=== PATIENT | male | born 1950 | race Caucasian/White ===

== ENCOUNTER 2016-03-16 15:04 | Emergency (ER) | payer MEDICARE, OTHER ==
[2016-03-16] MEDS ORDERED: KETOROLAC TROMETHAMINE 60 MG/2 ML VIAL IM ONE ×2 (15:28→15:31)
--- NOTE | 2016-03-16 15:31 | ERNOTE ---
Back Pain ER HPI Date of Service: 03/16/16 Presenting Symptoms: injury/pain to back Time Seen by Provider: 03/16/16 15:22 Source: patient, RN notes reviewed Exam Limitations: no limitations Immunizations: IMMUNIZATION HX Immunizations Up to Date Yes History of Influenza Vaccine No Allergies/Adverse Reactions: Allergies No Known Drug Allergies Allergy (Unknown, Verified 03/16/16 15:13) Home Medications: HOME MEDICATIONS Atorvastatin Calcium [Lipitor] 40 mg PO DAILY 10/29/13 [Last Taken 11/26/15 09: 00] amLODIPine BESYLATE [Norvasc] 10 mg PO DAILY 11/26/15 [Last Taken 11/26/15 09:00 ] Acetaminophen [Tylenol] 650 mg PO QID PRN #0 tablet 11/27/15 [Last Taken Unknown ] Cyclobenzaprine HCl [Flexeril] 10 mg PO TID PRN #30 tab 03/16/16 [Last Taken Unknown] Narrative: Geovanny is a 65 year old male who presents to the ED for bilateral flank pain that began a few days ago. He is concerned that he may have kidney stones. He reports that he had been moving furniture. He was also recently diagnosed with diabetes. He would like a second opinion about this. He has a lab report with him from Feb.08 that was done elsewhere. His glucose was 135. He reports that he was not fasting at that time. He has not follow up with his PCP regarding this. Quality/Severity: Reports: moderate Location of pain: Reports: mid back, no radiation Recent Injury?: Reports: possibly Possible Precipitating Factor: Reports: lifting Modifying Factors - (Worsens): Reports: cough/deep breaths Associated Symptoms: Denies: fever/chills, nausea/vomiting, problems urinating Prior Treament: Denies: similar symptoms before Review of Systems - Review of Systems Constitutional: Absent: fever, chills, malaise EYE: Present: no symptoms reported ENT: Present: no symptoms reported Respiratory: Absent: shortness of breath, cough Cardiology: Absent: chest pain, edema Gastrointestinal/Abdominal: Absent: nausea, vomiting, diarrhea, abdominal pain Genitourinary: Absent: frequency, dysuria, hematuria Musculoskeletal: Present: back pain, muscle pain. Absent: neck pain Skin: Absent: rash, lesions Endocrine: Present: no symptoms reported Hematologic/Lymphatic: Present: no symptoms reported Psych: Present: no symptoms reported - Patient's Past Medical History Patient History - Medical: Arthritis Patient History - Cardiac/Respiratory: Hypertension, Hyperlipidemia Patient History - Cancer: No Hx of Cancer Patient History - Surgical Procedures: Appendectomy, Colonoscopy, Other - Family History Mother Family History - Medical: Family History - Cardiac/Respiratory: No pertinent hx Father Family History - Medical: History Unknown Brother Family History - Cardiac/Respiratory: Cardiac Arrest, Myocardial Infarction - Social History Living Situations: home Smoking Status: Former smoker Have you smoked in the past 12 months: No Do you dip or chew tobacco: No Alcohol Use: rarely Drug Use: none Physical Exam - Physical Exam General Appearance: Present: wd/wn, alert, no apparent distress Neck: Present: normal inspection, nontender, supple Respiratory: Present: no respiratory distress, normal breath sounds, no accessory muscle use, lungs clear Cardiovascular/Chest: Present: regular rate, rhythm, no murmur Back Exam: Present: normal range of motion, no vertebral tenderness, CVA tenderness (R), CVA tenderness (L) Extremity Exam: Present: normal inspection, normal range of motion Neurological Exam: Present: alert, oriented, normal mood/affect, no motor/ sensory deficits Skin Exam: Present: normal color, warm/dry ED Progress - Results and Orders Patient's Lab Results:: I have reviewed the patient's lab results. - Vital Signs Patient's Vital Signs:: I have reviewed the patient's vital signs. Vital Signs: Vital Signs 03/16/16 15:09 Temperature 36 C L Pulse Rate 67 Respiratory 14 Rate Blood Pressure 159/83 O2 Sat by Pulse 95 Oximetry - CT/Ultrasound CT/Ultrasound Narrative: Stone protocol CT: IMPRESSION: 1. No evidence of renal stones or obstructive uropathy. 2. CT findings suggestive of acute diverticulitis of the junction of the descending and sigmoid colon as above. Bowel wall thickening could also be due to potential neoplasm. Consider follow-up colonoscopy or contrast enema after resolution of the patient's acute symptoms. 3. Small exophytic lesion of the inferior right kidney. Consider follow-up renal ultrasound on a routine basis. Additional comments and limitations are as above. Electronically signed by Gilmar Vences M.D.. - Progress/Reassessment Chief Complaint: Back Pain Progress:: Improved Plan - Plan Plan: Discussed UA and CT results with patient. Back pain likely d/t muscle strain as he recently relocated and has been moving furniture. CT did show possible diverticulitis but patient denies any GI symptoms. Discussed need for f/u of right renal lesion and his questionable diagnosis of diabetes with his PCP. Departure Clinical Impression: Bilateral thoracic back pain Qualifiers: Chronicity: acute Qualified Code(s): M54.6 - Pain in thoracic spine - Departure Disposition: Home Follow Up Needed Condition: Good Instructions: Back Pain, Adult, [id number] Additional Instructions: Can take Aleve twice a day - take with food Can also take Tylenol Flexeril can cause drowsiness - might just want to take at bedtime Follow up with Dr. Grande about your blood sugar and for an ultrasound of the lesion seen on the right kidney Referrals: Rajinder Grande, [Primary Care Provider] - Prescriptions: Cyclobenzaprine HCl [Flexeril] 10 mg PO TID PRN #30 tab PRN Reason: MUSCLE SPASMS
[2016-03-16 15:32] LABS: Urine Bilirubin Negative (NEGATIVE); Urine Ketone Negative (NEGATIVE); Urine Nitrite Negative (NEGATIVE); Urine Protein Negative (NEGATIVE); Urine Urobilinogen Normal (NORMAL)
[2016-03-16 15:38] LABS: Urine Blood 10 /ul (NEGATIVE); Urine Color Yellow
[2016-03-16 15:39] LABS: Urine Appearance Clear; Urine Bacteria None Seen; Urine RBC None Seen /hpf (0-5); Urine WBC None Seen /hpf (0-5)
[2016-03-16 16:18] VITALS: BP 151/92
== END 2016-03-16 16:55 | disposition home or self-care (01) ==
LOC: ER 15:04
DX: M54.6 Pain in thoracic spine (principal); Z87.891 Personal history of nicotine dependence; I10 Essential (primary) hypertension

== ENCOUNTER 2016-05-20 16:48 | Emergency (ER) | payer MEDICARE, OTHER ==
--- OUTSIDE RECORDS SUMMARY | 2016-05-20 17:15 | XMS REPORT | Continuity of Care Document ---
:[address] [place] [address] Care Team Providers Name Role Phone Ivet Landeros Primary Care Provider [phone] Source Comments This disclosure is being made pursuant to the [employer] program and maynot contain all information available regarding this patient.[address] Active Allergies and Adverse Reactions No Known Allergies Current Medications Be aware that medications may not be up to date as of this document. Alwaysverify current medications with the patient. Prescription Sig. Disp. Refills Start Date End Date Status atorvastatin (LIPITOR) Take 40 mg by Active 40 MG tablet mouth daily. amLODIPine (NORVASC) 10 Take 1 tablet by 90 tablet 0 02/09/2016 Active MG tablet mouth daily. metFORMIN (GLUCOPHAGE) Take 1 tablet by 120 tablet 0 03/07/2016 Active 500 MG tablet mouth 2 (two) times daily with meals. Blood Glucose Test once daily 1 each 0 03/07/2016 Active Monitoring Suppl FREDRICK glucose blood test Test once daily 100 each 5 03/07/2016 Active strip Lancets MISC Test once daily 100 each 5 03/07/2016 Active Active Problems Patient Care Coordination Note Due for diabetic eye exam Has current referral to [facility] - has 03/20 appointment No known active problems Most Recent Encounters Date Type Specialty Providers Description 05/19/2016 Telephone Family Medicine Magdalena Foster Appointment; CHAUNCEY Mayer Medication Review 05/19/2016 Scanned Document Ivet Antunez MD 03/14/2016 Scanned Document Ivet Antunez MD 03/07/2016 Office Visit Family Ivet Cornejo Newly diagnosed diabetes (HCC) (Primary Dx) 03/03/2016 Telephone Family Lis Kapadia, Appointment CHAUNCEY Immunizations Name Dates Previously Given Next Due Tdap 09/16/2013 Social History Tobacco Use Types Packs/Day Years Used Date Former Smoker Smokeless Tobacco: Current User Comments:ciggars Alcohol Use Drinks/Week oz/Week Comments Yes Last Filed Vital Signs Vital Sign Reading Time Taken Blood Pressure 136/72 03/07/2016 1:05 PM MORTGAGE PROFESSIONAL Pulse 68 03/07/2016 1:05 PM MORTGAGE PROFESSIONAL Temperature 36.4 C (97.6 F) 03/07/2016 1:05 PM MORTGAGE PROFESSIONAL Respiratory Rate 16 03/07/2016 1:05 PM MORTGAGE PROFESSIONAL Height 1.753 m (5' 9") 03/07/2016 1:05 PM MORTGAGE PROFESSIONAL Weight 116.03 kg (255 lb 12.8 oz) 03/07/2016 1:05 PM MORTGAGE PROFESSIONAL Body Mass Index 37.76 03/07/2016 1:05 PM MORTGAGE PROFESSIONAL Oxygen Saturation 98% 12/23/2015 9:15 AM CDT Plan of Care Patient Goal Type Goal Blood Pressure Blood Pressure below 140/90 Result Component HEMOGLOBIN A1C below 7.0 Health Maintenance Due Date Last Done Comments Eye (Ophthalmology) Exam 06/15/1961 Lab-Urine Microalbumin 06/15/1961 Hepatitis C Screening 06/15/1969 Well Adult Visit 06/15/2001 LAB-HgA1C 08/09/2016 02/09/2016 Lab-Lipids 02/08/2017 02/09/2016 Zoster Vaccine 60+ 02/08/2017 Postponed from 2011 (Patient Declined) Influenza Immunization (#1) 2017 Postponed from 11/04/2015 (Patient Declined) Foot Exam 03/07/2017 03/07/2016 Tetanus/Pertussis (2 - Td) 09/17/2023 09/16/2013 Colonoscopy 03/17/2025 03/17/2015, 03/17/2015 Results from Last 3 Months Referral to Orthopedic Surgery (04/10/2016)
--- OUTSIDE RECORDS SUMMARY | 2016-05-20 17:16 | XMS REPORT | Continuity of Care Document ---
:1950 Author Organization [facility] ([facility]) Address [address] [place] [address] Phone [phone] Care Team Providers Name Role Phone Javid Gonsalves Primary Care Provider [phone] Source Comments This disclosure is being made pursuant to the Care Everywhere program, applicable federal and state laws, and may not contain all informaitonavailable regarding this patient.[facility] ([facility]) Active Allergies and Adverse Reactions No Known Allergies Current Medications Prescription Sig. Disp. Refills Start Date End Date Status cyclobenzaprine 10 mg Take 10 mg by Active tablet mouth 3 times daily as needed. sildenafil (VIAGRA) 100 Take 1 tablet 6 tablet 11 06/18/2015 Active mg tablet (100 mg total) by mouth as needed. Take 1 hour prior to sexual activity. naproxen 500 mg tablet Take 500 mg by Active mouth 2 times daily with meals. amLODIPine 5 mg tablet Take 10 mg by Active mouth daily. atorvastatin 40 mg Take 1 tablet 90 tablet 3 03/22/2016 Active tablet (40 mg total) by mouth every evening. amoxicillin 500 mg Take 1 capsule 30 capsule 1 03/30/2016 Active capsule (500 mg total) by mouth 2 times daily. 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) Social History Tobacco Use Types Packs/Day Years Used Date Former Smoker Cigars Quit: 10/03/2012 Smokeless Tobacco: Never Used Alcohol Use Drinks/Week oz/Week Comments Yes very little Last Filed Vital Signs Vital Sign Reading Time Taken Blood Pressure 156/82 03/30/2016 1:15 PM CAR CHANGER Pulse 76 03/30/2016 1:15 PM CAR CHANGER Temperature 35.9 C (96.7 F) 03/30/2016 1:15 PM CAR CHANGER Respiratory Rate 18 03/30/2016 1:15 PM CAR CHANGER Height 1.78 m (5' 10.07") 03/20/2006 8:22 AM CAR CHANGER Weight 114.125 kg (251 lb 9.6 oz) 03/30/2016 1:15 PM CAR CHANGER Body Mass Index 36.02 03/30/2016 1:15 PM CAR CHANGER Oxygen Saturation - - Plan of Care Date Type Specialty Providers Description 05/30/2016 Appointment [facility] Rajinder Grande, Chief Comp: Patient DO Reported Reason For [address] [place] [address] [phone] 07/28/2016 Appointment [facility] Rajinder Grande, Chief Comp: Patient DO Reported Reason For [address] [place] [address] [phone] Health Maintenance Due Date Last Done Comments HCV Screening 1950 Hepatitis B Vaccine (1 of 3 - Primary Series) 1950 Tdap Vaccine 06/15/1962 Td Vaccine 06/15/1969 Colonoscopy 06/15/2001 Prostate Cancer Screening 06/15/2001 Zoster Vaccine 2011 Influenza Vaccine: Seasonal (#1) 10/04/2015 Lipid Disorder Screening 01/03/2018 01/03/2013 Results from Last 3 Months Not on file
[2016-05-20] MEDS ORDERED: ACETAMINOPHEN 500 MG TABLET PO ONE (17:26)
[2016-05-20 17:37] LABS: Hematocrit 43.6 % (42.0-52.0); Hemoglobin 14.3 gm/dL (13.5-18.0); Mean Cell Volume 81.5 fl (78-100); Mean Corpuscular Hemoglobin 26.7 pg (27-31); Mean Corpuscular Hgb Conc 32.8 g/dl (32-36); Mean Platelet Volume 8.9 fl (6.0-9.5); Neutrophil # 11.4 K/mm3 (1.3-6.0); Neutrophil % 74.1 % (42-75.0); Platelet Count 344 K/mm3 (150-450); Red Blood Count 5.35 M/mm3 (4.7-6.0); Red Cell Distribution Width 14.4 % (11.5-14.0); White Blood Count 15.3 K/mm3 (4.0-10.5)
--- NOTE | 2016-05-20 17:39 | ERNOTE ---
Abdominal HPI - Narrative Date of Service: 05/20/16 - General Chief Complaint: Abdominal Pain Time Seen by Provider: 05/20/16 17:04 Source: patient Exam Limitations: no limitations - Immun/Allergies/Home Medications Immunizatons: IMMUNIZATION HX Immunizations Up to Date Yes History of Influenza Vaccine No Hx Pneumococcal Vaccination No Allergies/Adverse Reactions: Allergies No Known Drug Allergies Allergy (Unknown, Verified 05/20/16 16:58) Home Medications: HOME MEDICATIONS Atorvastatin Calcium [Lipitor] 40 mg PO DAILY 10/29/13 [Last Taken 11/26/15 09: 00] amLODIPine BESYLATE [Norvasc] 10 mg PO DAILY 11/26/15 [Last Taken 11/26/15 09:00 ] Acetaminophen [Tylenol] 650 mg PO QID PRN #0 tablet 11/27/15 [Last Taken Unknown ] Cyclobenzaprine HCl [Flexeril] 10 mg PO TID PRN #30 tab 03/16/16 [Last Taken Unknown] Ciprofloxacin HCl [Cipro] 500 mg PO BID #20 tab 05/20/16 [Last Taken Unknown] metroNIDAZOLE [Flagyl] 500 mg PO QID #40 tab 05/20/16 [Last Taken Unknown] - Pain Score Pain Score #1 Pain Score: 5 Abdominal Pain Onset Location: suprapubic Pain Radiation: no radiation - History of Present Illness Narrative: Patient is a 65 year old male patient who presents to the ED with complaints of suprapubic pain since 0300 this am. Patient states he awoke 0300 with sudden onset of constant, sharp/throbbing pain that has been progressively worsening. States he has history of diverticulitis and states this is where the pain originally begins. States he ate a sandwich 2 days ago with seeds in it. States yesterday had some nausea and chills which resolved after a few hours. Denies vomiting, fever or diarrhea. Pain does not radiate. Last BM this morning and states that the pain lessened slightly after the BM. Does have prostate issues and was told he has enlarged prostate. Denies urgency, hematuria or frequency yet noticed dysuria this morning. Admits to being sexually active, states that he has had same partner for years. Denies penile discharge Date (Duration): 05/20/16 Time (Timing): 03:00 Timing: constant, getting worse Quality: moderate, stabbing, throbbing Activities at Onset: sleep Modifying Factors - (Improves): Present: defecating Modifying Factors - (Worsens): Present: movement Associated Symptoms: Present: fever/chills, nausea. Absent: headache, back pain , chest pain, neck pain, diaphoresis, diarrhea-gross blood, diarrhea-mucous, fatigue, heartburn, vomiting, loss of appetite, shortness of breath, swelling/ mass in abdomen Prior Abdominal Problems: Present: similar symptoms Review of Systems - Review of Systems Constitutional: Present: no symptoms reported, chills. Absent: recent illness, fever, diaphoresis, weakness, fatigue, malaise EYE: Present: no symptoms reported ENT: Present: no symptoms reported Respiratory: Absent: shortness of breath, cough, orthopnea, wheezing, stridor Cardiology: Absent: chest pain, palpitations, syncope Gastrointestinal/Abdominal: Present: nausea, abdominal pain. Absent: vomiting, diarrhea, constipation Genitourinary: Present: dysuria. Absent: frequency, hematuria, decreased urinary output, discharge Musculoskeletal: Absent: back pain, muscle pain, joint pain, joint swelling Skin: Absent: rash, dryness Neurological: Present: no symptoms reported Endocrine: Present: no symptoms reported Hematologic/Lymphatic: Present: no symptoms reported. Absent: swollen glands Psych: Present: no symptoms reported - Patient's Past Medical History Patient History - Medical: Arthritis, Other Patient History - Cardiac/Respiratory: No pertinent hx Patient History - Cancer: No Hx of Cancer Patient History - Surgical Procedures: Appendectomy, Colonoscopy, Other Patient History - Other: None - Family History Mother Family History - Medical: Family History - Cardiac/Respiratory: No pertinent hx Father Family History - Medical: History Unknown Brother Family History - Cardiac/Respiratory: Cardiac Arrest, Myocardial Infarction - Social History Living Situations: home Abuse History: No History of abuse Psych History: No pertinent hx Smoking Status: Former smoker Alcohol Use: rarely Drug Use: none - Immunizations Immunizations Up to Date: Yes Hx Pneumococcal Vaccination: No History of Influenza Vaccine: No Physical Exam - Physical Exam General Appearance: Present: wd/wn, alert, no apparent distress Eye Exam: Normal inspection: bilateral, PERRL: bilateral Ears, Nose, Throat: Present: normal pharynx. Absent: pharyngeal erythema, pharyngeal swelling, tonsillar exudate, dry mucous membranes Neck: Present: normal inspection, nontender. Absent: lymphadenopathy (R), lymphadenopathy (L) Respiratory: Present: no respiratory distress, normal breath sounds, no accessory muscle use, chest nontender, lungs clear. Absent: respiratory distress, accessory muscle use, decreased breath sounds, crackles, rales, rhonchi, wheezing Cardiovascular/Chest: Present: regular rate, rhythm, no murmur, normal peripheral pulses. Absent: gallop/S3, gallop/S4 Peripheral Pulses: N=norm/S=strong/W=weak/B=bound/A=absent: Radial (R): Normal, Radial (L): Normal Gastrointestinal/Abdominal: Present: normal bowel sounds, nondistended, soft, no organomegaly, tenderness - suprapubic pain Rectal Exam: Absent: normal prostate, black stool, blood-streaked stool Male Genitals Exam: Present: normal genitalia. Absent: normal prostate, scrotum tenderness (R), scrotum tenderness (L), testicular tenderness (R), testicular tenderness (L), urethral discharge Back Exam: Present: normal inspection, normal range of motion, no CVA tenderness , no vertebral tenderness Extremity Exam: Present: normal inspection, non-tender, normal range of motion, no edema Neurological Exam: Present: alert, oriented, normal mood/affect, no motor/ sensory deficits Skin Exam: Present: normal color, warm/dry Lymphatic Exam: Present: no adenopathy ED Progress - Results and Orders Patient's Lab Results:: I have reviewed the patient's lab results. - Vital Signs Patient's Vital Signs:: I have reviewed the patient's vital signs. Vital Signs: Vital Signs 05/20/16 16:53 Temperature 37.3 C Pulse Rate 75 Respiratory 16 Rate Blood Pressure 154/83 O2 Sat by Pulse 96 Oximetry - CT/Ultrasound CT/Ultrasound Narrative: CT of abdomen and pelvis with and without contrast: diverticulosis involving the descending colon and sigmoid colon. Mild diverticulitis involving the proximal sigmoid colon without definable fluid collection/abscess. - Progress/Reassessment Chief Complaint: Abdominal Pain Progress:: Re-examined Progress Note-Subjective: 05/20/16 18:08 Reviewed labs with patient and discussed desire to obtain CT scan of abdomen. Patient understood and agrees with decision 05/20/16 19:54 Continues to sit in chair watching television. Awaiting CT scan. Denies worsening pain, NVD. 05/20/16 21:[address] findings with patient. Expressed concern in wanting to admit patient yet he declined admission. Agreed to IV antibiotics, IVF and pain control in ED and discharged to home on oral antibiotics. Patient verbalized understanding in returning to ED in next 12-48 hours if condition worsens at home and patient experiences worsening pain, fever, chills, SOB or pain. Departure - Departure Clinical Impression: Diverticul disease small and large intestine, no perforati or abscess Disposition: Home Follow Up Needed Condition: Good Instructions: Diverticulosis, Diverticulitis, [id number] Additional Instructions: Begin Cipro and Flagyl antibiotics Sunday. Take as directed until finished. Follow up with Dr Grande this upcoming week. Return to ED if pain worsens or begin to have fever, chills, malaise, or difficulty breathing Referrals: Rajinder Grande, [Primary Care Provider] - Prescriptions: Ciprofloxacin HCl [Cipro] 500 mg PO BID #20 tab metroNIDAZOLE [Flagyl] 500 mg PO QID #40 tab
[2016-05-20 17:51] LABS: Albumin * 4.2 gm/dl (3.4-5.0); Anion Gap 13.8 mmol/L (6.8-13.8); BUN/Creatinine Ratio 17.2 (9.0-21.6); Bilirubin, Total 0.3 mg/dL (0.0-1.1); Ca. Corrected For Albumin 8.4 mg/dL (8.4-10.2); Calcium * 8.9 mg/dL (7.9-10.9); Carbon Dioxide 28.3 mmol/L (24-32.6); Potassium 4.1 mmol/L (3.4-4.6); Total Protein 8.1 gm/dL (6.2-8.2)
[2016-05-20 17:56] LABS: Urine Appearance Clear; Urine Bilirubin Negative (NEGATIVE); Urine Blood 25 /ul (NEGATIVE); Urine Color Yellow; Urine Ketone Negative (NEGATIVE); Urine Nitrite Negative (NEGATIVE); Urine Protein Negative (NEGATIVE); Urine Urobilinogen Normal (NORMAL); Urine pH 5.5 pH (5.0-7.0)
[2016-05-20 17:57] LABS: Urine Bacteria None Seen; Urine RBC 0-5 /hpf (0-5); Urine WBC 0-5 /hpf (0-5)
[2016-05-20] MEDS ORDERED: DIATRIZOATE MEGLU/DIATRIZO SOD 30 ML BTL PO ONE (18:15)
[2016-05-20] MEDS ORDERED: NORMAL SALINE 1,000 ML IV PRN (21:24)
[2016-05-20] MEDS ORDERED: KETOROLAC TROMETHAMINE 30 MG/ML VIAL IV ONE (21:24)
[2016-05-20] MEDS ORDERED: CIPROFLOXACIN LACTATE/D5W 400 MG/200 ML BAG IV SCH (21:30)
[2016-05-20] MEDS ORDERED: metroNIDAZOLE/SODIUM CHLORIDE 500 MG/100 ML BAG IV SCH (21:30)
[2016-05-20] MEDS ORDERED: KETOROLAC TROMETHAMINE 30 MG/ML VIAL ONE (21:45)
[2016-05-20 23:14] VITALS: BP 131/83
== END 2016-05-21 00:30 | disposition home or self-care (01) ==
LOC: ER 16:48
DX: K57.50 Diverticulosis of both small and large intestine without perforation or abscess without bleeding (principal)

== ENCOUNTER 2016-08-28 18:08 | Emergency (ER) | payer MEDICARE, OTHER ==
--- OUTSIDE RECORDS SUMMARY | 2016-08-28 18:25 | XMS REPORT | Continuity of Care Document ---
:1950 Author Organization [employer] [place] [address] Care Team Providers Name Role Phone Unavailable Primary Care Provider Unavailable Source Comments This disclosure is being made pursuant to the [employer] program and maynot contain all information available regarding this patient.[employer] Active Allergies and Adverse Reactions No Known [...] diabetic eye exam Has current referral to [facility] - has 03/20 appointment No known active problems Immunizations Name Dates Previously Given Next Due Tdap 09/16/2013 Social History Tobacco Use Types Packs/Day Years Used Date Former Smoker Smokeless Tobacco: Current User Comments:ciggars Alcohol Use Drinks/Week oz/Week Comments Yes Last Filed Vital Signs Vital Sign Reading Time Taken Blood Pressure 136/72 03/07/2016 1:05 PM HOSPITAL SECRETARY Pulse 68 03/07/2016 1:05 PM HOSPITAL SECRETARY Temperature 36.4 C (97.6 F) 03/07/2016 1:05 PM HOSPITAL SECRETARY Respiratory Rate 16 03/07/2016 1:05 PM HOSPITAL SECRETARY Height 1.753 m (5' 9") 03/07/2016 1:05 PM HOSPITAL SECRETARY Weight 116.03 kg (255 lb 12.8 oz) 03/07/2016 1:05 PM HOSPITAL SECRETARY Body Mass Index 37.76 03/07/2016 1:05 PM HOSPITAL SECRETARY Oxygen Saturation 98% 12/23/2015 9:15 AM CDT Plan of Care Patient Goal Type Goal Blood Pressure Blood Pressure below 140/90 Result Component HEMOGLOBIN A1C below 7.0 Health Maintenance Due Date Last Done Comments Eye (Ophthalmology) Exam 06/15/1961 Lab-Urine Microalbumin 06/15/1961 Hepatitis C Screening 06/15/1969 Well Adult Visit 06/15/2001 Pneumococcal Low/Medium Risk 06/15/2016 65+ (1 of 2 - PCV13) LAB-HgA1C 08/09/2016 02/09/2016 Lab-Lipids 02/08/2017 02/09/2016 Zoster Vaccine 60+ 02/08/2017 Postponed from 2011 (Patient Declined) Influenza Immunization (#1) 2017 Postponed from 11/04/2015 (Patient Declined) Foot Exam 03/07/2017 03/07/2016 Tetanus/Pertussis (2 - Td) 09/17/2023 09/16/2013 Colonoscopy 03/17/2025 03/17/2015, 03/17/2015 Results from Last 3 Months Not on file
--- NOTE | 2016-08-28 18:33 | ERNOTE ---
ENT HPI Date of Service: 08/28/16 Presenting Symptoms: other - ear pain Time Seen by Provider: 08/28/16 18:18 Source: patient Exam Limitations: no limitations - Immun/Allergies/Home Medications Immunizations: IMMUNIZATION HX Immunizations Up to Date Yes History of Influenza Vaccine No Hx Pneumococcal Vaccination No Allergies/Adverse Reactions: Allergies Allergy/AdvReac Type Severity Reaction Status Date / Time No Known Drug Allergies Allergy Unknown Verified 08/28/16 18:23 Home Medications: HOME MEDICATIONS Atorvastatin Calcium [Lipitor] 40 mg PO DAILY 10/29/13 [Last Taken 11/26/15 09: 00] amLODIPine BESYLATE [Norvasc] 5 mg PO DAILY 11/26/15 [Last Taken 11/26/15 09:00] Neomy Sulf/Polymyx B Sulf/Hc [Cortisporin Otic] 5 drop RIGHT EAR QID #10 ml [Last Taken Unknown] Tamsulosin HCl 0.4 mg PO DAILY 08/28/16 [Last Taken Unknown] - History of Present Illness Narrative: Pt. comes in with c/o R ear pain for 12 days. Pt. has been on abx for 9 days and it is not improving but is worsening and his hearing is decreased at this time. Pt. denies any SOB, CP, NVD, fever, recent illness, or injury. Pt. denies any pain control prior to arrival. Review of Systems - Review of Systems Constitutional: Present: no symptoms reported. Absent: recent illness, fever, chills, weakness, fatigue, malaise EYE: Present: no symptoms reported ENT: Present: ear pain - R Respiratory: Present: no symptoms reported. Absent: shortness of breath, cough , wheezing Cardiology: Present: no symptoms reported. Absent: chest pain, palpitations, edema Gastrointestinal/Abdominal: Present: no symptoms reported. Absent: nausea, vomiting, diarrhea Musculoskeletal: Present: no symptoms reported. Absent: back pain, joint pain Skin: Present: no symptoms reported Neurological: Present: no symptoms reported. Absent: headache, dizziness/light- headedness, numbness, tingling All Other Systems: All systems neg except as marked - Patient's Past Medical History Patient History - Medical: Arthritis Patient History - Cardiac/Respiratory: No pertinent hx Patient History - Cancer: No Hx of Cancer Patient History - Surgical Procedures: Appendectomy, Colonoscopy, Other Patient History - Other: None - Family History Mother Family History - Medical: Family History - Cardiac/Respiratory: No pertinent hx Father Family History - Medical: History Unknown Brother Family History - Cardiac/Respiratory: Cardiac Arrest, Myocardial Infarction - Social History Living Situations: home Abuse History: No History of abuse Psych History: No pertinent hx Alcohol Use: rarely Drug Use: none - Immunizations Immunizations Up to Date: Yes Hx Pneumococcal Vaccination: No History of Influenza Vaccine: No Physical Exam - Physical Exam General Appearance: Present: wd/wn, alert, no apparent distress Eye Exam: Normal inspection: bilateral, PERRL: bilateral, EOMI: bilateral Ears, Nose, Throat: Present: abnormal TM (R) - Obscured by purulent cerumen, cerumen impaction - R, normal pharynx, other - eustacian tube erythema Neck: Present: normal inspection, nontender. Absent: lymphadenopathy (R), lymphadenopathy (L) Respiratory: Present: no respiratory distress, normal breath sounds, no accessory muscle use, chest nontender, lungs clear Cardiovascular/Chest: Present: regular rate, rhythm, no murmur, normal peripheral pulses Back Exam: Present: normal inspection Extremity Exam: Present: normal inspection Neurological Exam: Present: alert, oriented, normal mood/affect, no motor/ sensory deficits Skin Exam: Present: normal color, warm/dry. Absent: pallor, skin rash ED Progress - Vital Signs Patient's Vital Signs:: I have reviewed the patient's vital signs. Departure Clinical Impression: Otitis externa Qualifiers: Otitis externa type: diffuse Chronicity: acute Laterality: right Qualified Code (s): H60.311 - Diffuse otitis externa, right ear Otitis media Qualifiers: Otitis media type: suppurative Chronicity: acute Laterality: right Recurrence: recurrent Spontaneous tympanic membrane rupture: with spontaneous rupture Qualified Code(s): H66.014 - Acute suppurative otitis media with spontaneous rupture of ear drum, recurrent, right ear - Departure Disposition: Home self-care Condition: Good Instructions: Otitis Externa, [id number], Otitis Media, Adult, [id number] Additional Instructions: Please follow up with ear nose and throat doctor in 2-3 days if not improved. Referrals: Gilbert Tolbert MD [Courtesy Staff] - Prescriptions: Neomy Sulf/Polymyx B Sulf/Hc [Cortisporin Otic] 5 drop RIGHT EAR QID #10 ml
[2016-08-28 19:05] VITALS: BP 145/82
== END 2016-08-28 19:07 | disposition home or self-care (01) ==
LOC: ER 18:08
DX: H60.311 Diffuse otitis externa, right ear (principal); H66.014 Acute suppurative otitis media with spontaneous rupture of ear drum, recurrent, right ear

== ENCOUNTER 2016-11-09 20:36 | Emergency (ER) | payer MEDICARE, OTHER ==
[2016-11-09] MEDS ORDERED: KETOROLAC TROMETHAMINE 60 MG/2 ML VIAL IM ONE ×2 (22:25)
--- NOTE | 2016-11-09 22:27 | ERNOTE ---
Medical Problem HPI - General Chief Complaint: General Assessment Time Seen by Provider: 11/09/16 22:17 Source: patient Exam Limitations: no limitations - Immun/Allergies/Home Medications Immunizations: IMMUNIZATION HX Immunizations Up to Date Yes History of Influenza Vaccine No Hx Pneumococcal Vaccination No Allergies/Adverse Reactions: Allergies No Known Drug Allergies Allergy (Unknown, Verified 11/09/16 21:04) Home Medications: HOME MEDICATIONS Atorvastatin Calcium [Lipitor] 40 mg PO DAILY 10/29/13 [Last Taken 11/26/15 09: 00] amLODIPine BESYLATE [Norvasc] 5 mg PO DAILY 11/26/15 [Last Taken 11/26/15 09:00] Tamsulosin HCl 0.4 mg PO DAILY 08/28/16 [Last Taken Unknown] Nabumetone 750 mg PO BID #20 tablet 11/09/16 [Last Taken Unknown] - History of Present History Narrative: left groin pain after lifting a kayak onto a car 3 days ago. Timing: getting worse Severity: moderate Modifying Factors - (Worsens): Present: movement Review of Systems - Review of Systems Constitutional: Absent: recent illness, fever, chills Respiratory: Absent: shortness of breath Cardiology: Absent: chest pain Gastrointestinal/Abdominal: Absent: nausea, vomiting, constipation Genitourinary: Absent: dysuria, hematuria Musculoskeletal: Present: See HPI Skin: Absent: rash Neurological: Absent: weakness, numbness, tingling Endocrine: Present: no symptoms reported Hematologic/Lymphatic: Present: no symptoms reported Psych: Present: no symptoms reported - Patient's Past Medical History Patient History - Medical: Arthritis Patient History - Cardiac/Respiratory: No pertinent hx Patient History - Cancer: No Hx of Cancer Patient History - Surgical Procedures: Appendectomy, Colonoscopy, Other Patient History - Other: None - Family History Mother Family History - Medical: Family History - Cardiac/Respiratory: No pertinent hx Father Family History - Medical: History Unknown Brother Family History - Cardiac/Respiratory: Cardiac Arrest, Myocardial Infarction - Social History Living Situations: home Abuse History: No History of abuse Psych History: No pertinent hx Smoking Status: Former smoker Alcohol Use: rarely Drug Use: none - Immunizations Immunizations Up to Date: Yes Hx Pneumococcal Vaccination: No History of Influenza Vaccine: No Physical Exam - Physical Exam General Appearance: Present: wd/wn, alert, no apparent distress Head Exam: Present: normal inspection, no evidence of injury Neck: Present: normal inspection, nontender, supple Gastrointestinal/Abdominal: Present: nondistended, soft, tenderness - minimal in the LLQ. Absent: guarding, rebound, mass, hernia Back Exam: Present: normal inspection, normal range of motion, no vertebral tenderness Extremity Exam: Present: normal except - - left upper medial thigh tenderness Neurological Exam: Present: alert, oriented, normal mood/affect, no motor/ sensory deficits Skin Exam: Present: normal color, warm/dry ED Progress - Vital Signs Patient's Vital Signs:: I have reviewed the patient's vital signs. Vital Signs: Vital Signs 11/09/16 21:05 Temperature 37.0 C Pulse Rate 77 Respiratory 16 Rate Blood Pressure 140/75 O2 Sat by Pulse 95 Oximetry - Progress/Reassessment Chief Complaint: General Assessment Departure - Departure Clinical Impression: Abdominal muscle strain Qualifiers: Encounter type: initial encounter Qualified Code(s): S39.011A - Strain of muscle, fascia and tendon of abdomen, initial encounter Disposition: Home self-care Condition: Good Instructions: Adductor Muscle Strain Referrals: Rajinder Grande DO [Primary Care Provider] - Prescriptions: Nabumetone 750 mg PO BID #20 tablet
[2016-11-09 22:41] VITALS: BP 138/84
== END 2016-11-09 23:09 | disposition home or self-care (01) ==
LOC: ER 20:36
DX: S39.011A Strain of muscle, fascia and tendon of abdomen, initial encounter (principal); Z87.891 Personal history of nicotine dependence; X50.0XXA Overexertion from strenuous movement or load, initial encounter

== ENCOUNTER 2016-11-27 12:58 | Emergency (ER) | payer MEDICARE, OTHER ==
[2016-11-27] MEDS ORDERED: DIATRIZOATE MEGLUMINE, SODIUM 30 ML BTL PO ONE (14:15)
[2016-11-27] MEDS ORDERED: DIATRIZOATE MEGLUMINE, SODIUM 30 ML BTL ONE (14:17)
[2016-11-27 14:19] LABS: Hematocrit 41.2 % (42.0-52.0); Hemoglobin 13.9 gm/dL (13.5-18.0); Mean Cell Volume 80.2 fl (78-100); Mean Corpuscular Hgb Conc 33.7 g/dl (32-36); Mean Platelet Volume 9.4 fl (6.0-9.5); Neutrophil % 67.5 % (42-75.0); Platelet Count 306 K/mm3 (150-450); Red Blood Count 5.14 M/mm3 (4.7-6.0); Red Cell Distribution Width 14.2 % (11.5-14.0); White Blood Count 8.8 K/mm3 (4.0-10.5)
[2016-11-27 14:28] LABS: Urine Bilirubin Negative (NEGATIVE); Urine Blood 25 /ul (NEGATIVE); Urine Ketone Negative (NEGATIVE); Urine Nitrite Negative (NEGATIVE); Urine Protein Negative (NEGATIVE); Urine Specific Gravity >=1.030 SP.GR. (1.005-1.030); Urine Urobilinogen Normal (NORMAL); Urine pH 5.5 pH (5.0-7.0)
[2016-11-27 14:35] LABS: Albumin * 3.9 gm/dl (3.4-5.0); Anion Gap 13.5 mmol/L (6.8-13.8); BUN/Creatinine Ratio 15.2 (9.0-21.6); Bilirubin, Total 0.3 mg/dL (0.0-1.1); Ca. Corrected For Albumin 8.9 mg/dL (8.4-10.2); Calcium * 9.1 mg/dL (7.9-10.9); Carbon Dioxide 25.8 mmol/L (24-32.6); Potassium 4.3 mmol/L (3.4-4.6); Total Protein 7.7 gm/dL (6.2-8.2)
[2016-11-27 14:40] LABS: Urine Appearance Clear; Urine Bacteria None Seen; Urine Color Yellow; Urine RBC 0-5 /hpf (0-5); Urine WBC None Seen /hpf (0-5)
[2016-11-27 17:06] VITALS: BP 152/82
--- NOTE | 2016-11-27 17:36 | ERNOTE ---
Abdominal HPI - Narrative Date of Service: 11/27/16 - General Chief Complaint: Abdominal Pain Time Seen by Provider: 11/27/16 13:58 Source: patient Exam Limitations: no limitations - Immun/Allergies/Home Medications Immunizatons: IMMUNIZATION HX Immunizations Up to Date Yes History of Influenza Vaccine No Hx Pneumococcal Vaccination No Allergies/Adverse Reactions: Allergies No Known Drug Allergies Allergy (Unknown, Verified 11/09/16 21:04) Home Medications: HOME MEDICATIONS Atorvastatin Calcium [Lipitor] 40 mg PO DAILY 10/29/13 [Last Taken 11/26/15 09: 00] amLODIPine BESYLATE [Norvasc] 5 mg PO DAILY 11/26/15 [Last Taken 11/26/15 09:00] Tamsulosin HCl 0.4 mg PO DAILY 08/28/16 [Last Taken Unknown] Nabumetone 750 mg PO BID #20 tablet 11/09/16 [Last Taken Unknown] Ciprofloxacin HCl [Cipro] 500 mg PO BID 10 Days tablet 11/27/16 [Last Taken Unknown] metroNIDAZOLE [Flagyl] 500 mg PO QID 10 Days #40 tab 11/27/16 [Last Taken Unknown] - History of Present Illness Narrative: Patient presents to the ED for LLQ abdominal pain. He relates he had had some off and on pain for a couple of days in the LLQ. This pain has become more persistent over the last day. he has had diverticulitis before and it feels like that. No fever or vomiting. No blood in the stool. nothing really makes this better or worse. Has not seen anyone else for this. Timing: constant, other - fluctuating intensity Quality: moderate Activities at Onset: none Modifying Factors - (Improves): Present: other - nothing Modifying Factors - (Worsens): Present: other - nothing Associated Symptoms: Absent: back pain, chest pain, fever/chills, nausea, vomiting, loss of appetite, shortness of breath Prior Abdominal Problems: Present: other - diverticulitis Prior Treatment: Absent: recently seen Review of Systems - Review of Systems Constitutional: Absent: fever Respiratory: Absent: shortness of breath Cardiology: Absent: chest pain Gastrointestinal/Abdominal: Absent: abdominal pain Genitourinary: Absent: dysuria Neurological: Absent: weakness - Patient's Past Medical History Patient History - Medical: Arthritis Patient History - Cardiac/Respiratory: No pertinent hx Patient History - Cancer: No Hx of Cancer Patient History - Surgical Procedures: Appendectomy, Cataracts, Colonoscopy, Other, Hernia Repair, Orthopedic Patient History - Other: None - Family History Mother Family History - Medical: Family History - Cardiac/Respiratory: No pertinent hx Father Family History - Medical: History Unknown Brother Family History - Cardiac/Respiratory: Cardiac Arrest, Myocardial Infarction - Social History Living Situations: home Abuse History: No History of abuse Psych History: No pertinent hx Smoking Status: Never smoker Have you smoked in the past 12 months: No Do you dip or chew tobacco: No Alcohol Use: rarely Drug Use: none - Immunizations Immunizations Up to Date: Yes Hx Pneumococcal Vaccination: No History of Influenza Vaccine: No Physical Exam - Physical Exam General Appearance: Present: alert, no apparent distress Head Exam: Present: normal inspection, no evidence of injury Eye Exam: Normal inspection: bilateral, PERRL: bilateral Ears, Nose, Throat: Present: normal ENT inspection Neck: Present: normal inspection Respiratory: Present: no respiratory distress, normal breath sounds, no accessory muscle use, lungs clear Cardiovascular/Chest: Present: regular rate, rhythm Gastrointestinal/Abdominal: Present: normal bowel sounds, nondistended, soft, other - LLQ tenderness to palpation. No guarding or rebound. no peritoneal signs Back Exam: Absent: CVA tenderness (R), CVA tenderness (L) Extremity Exam: Present: normal inspection Neurological Exam: Present: alert, normal mood/affect, no motor/sensory deficits Skin Exam: Present: normal color, warm/dry ED Progress - Results and Orders Patient's Lab Results:: I have reviewed the patient's lab results. - Vital Signs Patient's Vital Signs:: I have reviewed the patient's vital signs. Vital Signs: Vital Signs 11/27/16 11/27/16 13:09 17:06 Temperature 37.1 C Pulse Rate 78 76 Respiratory 18 17 Rate Blood Pressure 156/86 152/82 O2 Sat by Pulse 95 94 Oximetry - CT/Ultrasound CT/Ultrasound Narrative: I reviewed the official radiology CT report - Progress/Reassessment Chief Complaint: Abdominal Pain Progress Note-Subjective: 11/27/16 17:35 Diverticulitis, uncomplicated. He feels like going home. ABx. I discussed the CT report with him and the findings that need follow-up. I disucssed warning signs and reasons to return as well as the need for close f/u. Departure Clinical Impression: Diverticulitis - Departure Disposition: Home self-care Condition: Stable Instructions: Diverticulitis, [id number] Additional Instructions: Rest. Fluids. Antibiotics as directed. Follow-up with your doctor in 3 days for a re-check. You will need to discuss the follow-up colonoscopy and CT scan of your chest with your doctor. Return for fever, vomiting, increased pain or if your condition worsens or changes in any way. Referrals: Rajinder Grande DO [Primary Care Provider] - Prescriptions: Ciprofloxacin HCl [Cipro] 500 mg PO BID 10 Days tablet metroNIDAZOLE [Flagyl] 500 mg PO QID 10 Days #40 tab
== END 2016-11-27 17:34 | disposition home or self-care (01) ==
LOC: ER 12:58
DX: K57.92 Diverticulitis of intestine, part unspecified, without perforation or abscess without bleeding (principal)

== ENCOUNTER 2017-03-21 05:45 | Emergency (ER) | payer MEDICARE, OTHER ==
--- NOTE | 2017-03-21 06:14 | ERNOTE ---
Abdominal HPI - General Chief Complaint: Abdominal Pain Time Seen by Provider: 03/21/17 06:00 Source: patient Exam Limitations: no limitations - Immun/Allergies/Home Medications Immunizatons: IMMUNIZATION HX Immunizations Up to Date Yes History of Influenza Vaccine Yes Hx Pneumococcal Vaccination Yes Allergies/Adverse Reactions: Allergies No Known Drug Allergies Allergy (Unknown, Verified 03/21/17 05:53) Home Medications: HOME MEDICATIONS Atorvastatin Calcium [Lipitor] 40 mg PO DAILY 10/29/13 [Last Taken 11/26/15 09: 00] amLODIPine BESYLATE [Norvasc] 5 mg PO DAILY 11/26/15 [Last Taken 11/26/15 09:00] Tamsulosin HCl 0.4 mg PO DAILY 08/28/16 [Last Taken Unknown] Nabumetone 750 mg PO BID #20 tablet 11/09/16 [Last Taken Unknown] Ciprofloxacin HCl [Cipro] 500 mg PO BID #20 tab 03/21/17 [Last Taken Unknown] metroNIDAZOLE [Flagyl] 500 mg PO Q12H #20 tab 03/21/17 [Last Taken Unknown] - History of Present Illness Narrative: Pt has has increasing abdominal pain for 2-3 days, worsened this am Timing: getting worse Quality: moderate, dullness Activities at Onset: none Review of Systems - Review of Systems Constitutional: Absent: fever, chills EYE: Present: no symptoms reported ENT: Present: no symptoms reported Respiratory: Absent: shortness of breath, cough Cardiology: Absent: chest pain Gastrointestinal/Abdominal: Present: See HPI, nausea. Absent: vomiting Genitourinary: Absent: frequency, pain Musculoskeletal: Absent: back pain Skin: Absent: rash Neurological: Present: no symptoms reported Endocrine: Present: no symptoms reported Hematologic/Lymphatic: Present: no symptoms reported Psych: Present: no symptoms reported - Patient's Past Medical History Patient History - Medical: Arthritis, Other - diverticulitis Patient History - Cardiac/Respiratory: Hypertension Patient History - Cancer: No Hx of Cancer Patient History - Surgical Procedures: Appendectomy, Cataracts, Colonoscopy, Other, Hernia Repair, Orthopedic Patient History - Other: None - Family History Mother Family History - Medical: Family History - Cardiac/Respiratory: No pertinent hx Father Family History - Medical: History Unknown Brother Family History - Cardiac/Respiratory: Cardiac Arrest, Myocardial Infarction - Social History Living Situations: home Abuse History: No History of abuse Psych History: No pertinent hx Smoking Status: Former smoker Patient requests Smoking Cessation Consult: No Initiate information on Smoking Cessation: No Alcohol Use: rarely Drug Use: none - Immunizations Immunizations Up to Date: Yes Hx Pneumococcal Vaccination: Yes History of Influenza Vaccine: Yes Physical Exam - Physical Exam General Appearance: Present: wd/wn, alert, no apparent distress Head Exam: Present: normal inspection, no evidence of injury Eye Exam: Normal inspection: bilateral Ears, Nose, Throat: Present: normal ENT inspection Neck: Present: normal inspection, nontender Respiratory: Present: no respiratory distress, normal breath sounds, lungs clear Cardiovascular/Chest: Present: regular rate, rhythm, no murmur Gastrointestinal/Abdominal: Present: normal bowel sounds, tenderness - LLQ. Absent: distended, guarding, rebound Back Exam: Present: normal inspection, normal range of motion, no CVA tenderness Extremity Exam: Present: normal inspection, normal range of motion, no edema Neurological Exam: Present: alert, oriented, normal mood/affect, no motor/ sensory deficits Skin Exam: Present: normal color, warm/dry Lymphatic Exam: Present: no adenopathy ED Progress - Results and Orders Patient's Lab Results:: I have reviewed the patient's lab results. Results and Orders: Laboratory Tests 03/21/17 03/21/17 03/21/17 06:11 06:20 06:20 WBC 7.2 Hgb 14.6 Hct 43.7 Plt Count 273 Sodium 138 Potassium 3.9 Chloride 103 Carbon Dioxide 28.3 Anion Gap 10.6 BUN 12 Creatinine 0.98 Random Glucose 117 H Calcium 9.0 Total Bilirubin 0.3 AST 17 ALT 57 Alkaline Phosphatase 83 Total Protein 7.8 Albumin 3.8 Amylase 31 Lipase 102 Urine Color Yellow Urine Appearance Clear Urine pH 6.0 Ur Specific [place] >=1.030 Urine Protein Negative Urine Glucose (UA) Negative Urine Ketones Negative Urine Blood 10 H Urine Nitrate Negative Urine Bilirubin Negative Urine Urobilinogen Normal Ur Leukocyte Esterase Negative Urine RBC None seen Urine WBC None seen Ur Epithelial Cells None seen Urine Bacteria None seen Urine Culture Comments No culture indicated - Vital Signs Patient's Vital Signs:: I have reviewed the patient's vital signs. Vital Signs: Vital Signs 03/21/17 05:49 Temperature 36.8 C Pulse Rate 62 Respiratory 18 Rate Blood Pressure 148/95 O2 Sat by Pulse 98 Oximetry - X-Ray X-Ray #1 X-Ray: abdomen Interpretation: Interp. by me X-ray Comments: moderate stool retention without dilated bowel or a/f levels. - CT/Ultrasound CT/Ultrasound Narrative: CT abd/ pelvis without contrast IMPRESSION: 1. VERY MILD UNCOMPLICATED SIGMOID DIVERTICULITIS. 2. NO NEPHROLITHIASIS OR HYDRONEPHROSIS. 3. ADDITIONAL CHRONIC FINDINGS DETAILS ABOVE. 4. REMAINDER OF EXAM IS LIMITED WITHOUT CONTRAST. Electronically signed by Rajinder Barajas D.O.. - Progress/Reassessment Chief Complaint: Abdominal Pain Departure Clinical Impression: Diverticulitis large intestine Qualifiers: Diverticulitis bleeding: without bleeding Diverticulitis complication: without perforation or abscess Qualified Code(s): K57.32 - Diverticulitis of large intestine without perforation or abscess without bleeding - Departure Disposition: Home Follow Up Needed Condition: Good Instructions: Diverticulitis, [id number] Additional Instructions: clear liquids until your pain is gone then slowly resume your normal diet. Start increasing fiber intake in 2-3 weeks by taking a fiber supplement daily for one week then twice a day for one week then 3 times a day. Drink at least 10-12 ounces of water with each dose of fiber. Referrals: Sivan Fuentes DO [Primary Care Provider] - Prescriptions: Ciprofloxacin HCl [Cipro] 500 mg PO BID #20 tab metroNIDAZOLE [Flagyl] 500 mg PO Q12H #20 tab
[2017-03-21 06:19] LABS: Urine Bilirubin Negative (NEGATIVE); Urine Ketone Negative (NEGATIVE); Urine Nitrite Negative (NEGATIVE); Urine Protein Negative (NEGATIVE); Urine Specific Gravity >=1.030 SP.GR. (1.005-1.030); Urine Urobilinogen Normal (NORMAL)
[2017-03-21 06:25] LABS: Hematocrit 43.7 % (42.0-52.0); Hemoglobin 14.6 gm/dL (13.5-18.0); Mean Cell Volume 81.1 fl (78-100); Mean Corpuscular Hemoglobin 27.1 pg (27-31); Mean Corpuscular Hgb Conc 33.4 g/dl (32-36); Mean Platelet Volume 9.1 fl (6.0-9.5); Neutrophil # 3.9 K/mm3 (1.3-6.0); Neutrophil % 54.5 % (42-75.0); Platelet Count 273 K/mm3 (150-450); Red Blood Count 5.39 M/mm3 (4.7-6.0); Red Cell Distribution Width 13.9 % (11.5-14.0); White Blood Count 7.2 K/mm3 (4.0-10.5)
[2017-03-21 06:30] LABS: Urine Appearance Clear; Urine Bacteria None Seen; Urine Blood 10 /ul (NEGATIVE); Urine Color Yellow; Urine RBC None Seen /hpf (0-5); Urine WBC None Seen /hpf (0-5)
[2017-03-21 06:36] LABS: Albumin * 3.8 gm/dl (3.4-5.0); Anion Gap 10.6 mmol/L (6.8-13.8); BUN/Creatinine Ratio 12.2 (9.0-21.6); Bilirubin, Total 0.3 mg/dL (0.0-1.1); Ca. Corrected For Albumin 8.8 mg/dL (8.4-10.2); Carbon Dioxide 28.3 mmol/L (24-32.6); Potassium 3.9 mmol/L (3.4-4.6); Total Protein 7.8 gm/dL (6.2-8.2)
[2017-03-21 07:49] VITALS: BP 143/89
== END 2017-03-21 07:35 | disposition home or self-care (01) ==
LOC: ER 05:45
DX: Z87.891 Personal history of nicotine dependence; I10 Essential (primary) hypertension; K57.32 Diverticulitis of large intestine without perforation or abscess without bleeding